=== PATIENT | male | born 1980 | race Caucasian/White ===

== ENCOUNTER → 2019-03-20 | Outpatient (CLI) | payer BC ==
[2019-03-20 11:06] LABS: Basophils # (A) 0.1 k/uL (0-0.2); Basophils % (A) 1 %; Eosinophils # (A) 0.4 k/uL (0-0.7); Eosinophils % (A) 6 %; HCT 45.8 % (39.0-53.0); HGB 15.5 gm/dL (13.0-17.5); Lymphocytes # (A) 2.7 k/uL (1.0-4.8); Lymphocytes % (A) 41 %; MCH 30.7 pg (25.0-35.0); MCHC 33.8 g/dL (31.0-37.0); MCV 90.8 fL (80.0-100.0); Monocytes # (A) 0.4 k/uL (0-1.0); Monocytes % (A) 6 %; Neutrophils # (A) 2.9 k/uL (1.3-7.7); Neutrophils % (A) 44 %; Platelet Count 324 k/uL (150-450); RBC 5.05 m/uL (4.30-5.90); RDW 12.2 % (11.5-15.5); WBC 6.7 k/uL (3.8-10.6)
[2019-03-20 16:33] LABS: Valproic Acid (Depakene) 39.7 ug/mL (50.0-100.0)
[2019-03-20 16:37] LABS: African American GFR (CKD) 132.3 (60.0-200.0); Albumin 4.7 g/dL (3.80-4.90); Albumin/Globulin Ratio 2.04 (1.60-3.17); Anion Gap 9.4 mmol/L (4.00-12.00); BUN/Creat Ratio 13.75 Ratio (12.00-20.00); Calcium 9.8 mg/dL (8.7-10.3); Carbon Dioxide 25.6 mmol/L (21.6-31.8); Chol/HDL Ratio 3.83; Globulin 2.3 g/dL (1.6-3.3); Non-African American GFR(CKD) 114.1 (60.0-200.0); Potassium 4.5 mmol/L (3.5-5.5); Total Bilirubin 0.4 mg/dL (0.2-1.2)
== END | disposition home or self-care (01) ==
LOC: LABWHC1 10:04
PROVIDERS: ATTEND Internal Medicine
DX: Z00.01 Encounter for general adult medical examination with abnormal findings (principal); R56.9 Unspecified convulsions
CPT/HCPCS: 36415; 80053; 80061; 80164; 80177; 85025

== ENCOUNTER 2023-08-01 10:40 | Emergency (ER) | payer BC ==
[2023-08-01] MEDS: ORPHENADRINE 30 MG/ML 2 ML VIAL IM STA (12:17)
--- NOTE | 2023-08-01 12:38 | ED ---
Back Pain HPI - General Chief Complaint: Back Pain/Injury Stated Complaint: back pain Time Seen by Provider: 08/01/23 12:37 Source: patient, family, RN notes reviewed Mode of arrival: ambulatory Limitations: no limitations - History of Present Illness Initial Comments: 43-year-old male presenting to the ER with a chief complaint of back pain. He states his pain has been exacerbated on . No known injuries or traumas. He does have a history of back pain and is scheduled to see Dr. Harris on 08-05-2023. He states for the past couple of days he has been having extreme pain and difficulty walking as he feels like his left leg is going to "give out". He also reports a tingling sensation down the left thigh. He denies any saddle paresthesias, bowel or bladder incontinence, fevers or history of IV drug use. - Related Data Home Medications Medication Instructions Recorded Confirmed Atorvastatin [Lipitor] 20 mg PO HS 08/01/23 08/01/23 Divalproex ER [Depakote ER] 500 mg PO HS 08/01/23 08/01/23 Naproxen Sodium [Aleve] 220 mg PO DAILY PRN 08/01/23 08/01/23 levETIRAcetam [Keppra Xr] 1,000 mg PO HS 08/01/23 08/01/23 rOPINIRole HCL [Requip] 1 mg PO HS 08/01/23 08/01/23 Previous Rx's Medication Instructions Recorded HYDROcodone/APAP 5-325MG [[place] 5] 1 each PO Q6HR PRN #12 tab 08/01/23 predniSONE 50 mg PO DAILY #5 tab 08/01/23 Allergies Allergy/AdvReac Type Severity Reaction Status Date / Time Penicillins Allergy Rash/Hives Verified 08/01/23 12:27 Review of Systems ROS Statement: Those systems with pertinent positive or pertinent negative responses have been documented in the HPI. ROS Other: All systems not noted in ROS Statement are negative. Past Medical History Past Medical History: Seizure Disorder History of Any Multi-Drug Resistant Organisms: None Reported Past Surgical History: Adenoidectomy Past Psychological History: No Psychological Hx Reported Smoking Status: Never smoker Past Alcohol Use History: Occasional Past Drug Use History: None Reported General Exam Limitations: no limitations Respiratory exam: Present: normal lung sounds bilaterally. Absent: respiratory distress, wheezes, rales, rhonchi, stridor Cardiovascular Exam: Present: regular rate, normal rhythm, normal heart sounds. Absent: systolic murmur, diastolic murmur, rubs, gallop, clicks Back exam: Present: tenderness (left pevllic gurdle. weakness to hip flexion on left. 2+ PT and DP pulses. sensation intact ) Neurological exam: Present: alert, oriented X3, CN II-XII intact Skin exam: Present: warm, dry, intact, normal color. Absent: rash Course Vital Signs 08/01/23 08/01/23 10:41 13:48 Temperature 98.1 F 97.9 F Pulse Rate 56 L 80 Respiratory 20 18 Rate Blood Pressure 137/82 136/70 O2 Sat by Pulse 98 99 Oximetry Medical Decision Making - Medical Decision Making Was pt. sent in by a medical professional or institution (, PA, SHEET METAL INSTALLER, urgent care, hospital, or retirement...) When possible be specific @ -No Did you speak to anyone other than the patient for history (EMS, parent, family, police, friend...)? What history was obtained from this source @ - aiding with PMHx and HPI. Did you review nursing and triage notes (agree or disagree)? Why? @ -I reviewed and agree with nursing and triage notes Were old charts reviewed (outside hosp., previous admission, EMS record, old EKG, old radiological studies, urgent care reports/EKG's, retirement records)? Report findings @ -No old charts were reviewed Differential Diagnosis (chest pain, altered mental status, abdominal pain women, abdominal pain men, vaginal bleeding, weakness, fever, dyspnea, syncope, headache, dizziness, GI bleed, back pain, seizure, CVA, palpatations, mental health, musculoskeletal)? @ -Differential Back Pain:Strain, zoster, cauda equina syndrome, epidural abscess, vertebral osteomyelitis, discitis, fracture, subluxation, disc herniation, DJD, spinal stenosis, dissection, AAA, pancreatitis, peptic ulcer disease, pyelonephritis, kidney stone, this is not meant to be an all-inclusive list. EKG interpreted by me (3pts min.). @ -None X-rays interpreted by me (1pt min.). @ -None done CT interpreted by me (1pt min.). @ -CT lumbar spine significant for L4-L5 central disc protrusion with moderate to severe spinal canal stenosis. No evidence of fractures. U/S interpreted by me (1pt. min.). @ -None done What testing was considered but not performed or refused? (CT, X-rays, U/S, labs)? Why? @ -None What meds were considered but not given or refused? Why? @ -None Did you discuss the management of the patient with other professionals (professionals i.e. , PA, SHEET METAL INSTALLER, lab, RT, psych nurse, sr. social media & mobile manager, department editor, teacher, foreign policy officer, bilingual case manager)? Give summary @ -No Was smoking cessation discussed for >3mins.? @ -No Was critical care preformed (if so, how long)? @ -No Were there social determinants of health that impacted care today? How? (Homelessness, low income, unemployed, alcoholism, drug addiction, transportation, low edu. Level, literacy, decrease access to med. care, longterm, rehab)? @ -No Was there de-escalation of care discussed even if they declined (Discuss DNR or withdrawal of care, Hospice)? DNR status @ -No What co-morbidities impacted this encounter? (DM, HTN, Smoking, COPD, CAD, Cancer, CVA, ARF, Chemo, Hep., AIDS, mental health diagnosis, sleep apnea, morbid obesity)? @ -None Was patient admitted / discharged? Hospital course, mention meds given and route, prescriptions, significant lab abnormalities, going to OR and other pertinent info. @ -Discharge. 43-year-old male presented to the ER with chief complaint of back pain. History and physical exam completed. Vitals stable. Patient no signs of acute distress and nontoxic-appearing. No red flag back pain symptoms indicative of cauda equina syndrome. CT lumbar spine significant for moderate to severe spinal canal stenosis with disc protrusion of L4-L5. Results discussed with patient, all questions answered. Prednisone and [place] prescribed. I strongly encouraged patient to attend orthopedic appointment on 08-05-[address] Castellanos. Strict return parameters discussed. Patient discharged stable condition with follow-up to orthopedics. Patient and verbally expressed understanding and agreement with care plan. Case discussed with ED attending, Dr. Garcia. Undiagnosed new problem with uncertain prognosis? @ -No Drug Therapy requiring intensive monitoring for toxicity (Heparin, Nitro, Insulin, Cardizem)? @ -No Were any procedures done? @ -No Diagnosis/symptom? @ -Spinal canal stenosis/L4-L5 central disc protrusion Acute, or Chronic, or Acute on Chronic? @ -Chronic Uncomplicated (without systemic symptoms) or Complicated (systemic symptoms)? @ -Uncomplicated Side effects of treatment? @ -No Exacerbation, Progression, or Severe Exacerbation? @ -No Poses a threat to life or bodily function? How? (Chest pain, [place], [place], pneumonia, PE, COPD, DKA, ARF, appy, cholecystitis, CVA, Diverticulitis, Homicidal, Suicidal, threat to staff... and all critical care pts) @ -No - Radiology Data Radiology results: report reviewed, image reviewed Disposition Clinical Impression: Lumbar canal stenosis, L4-L5 disc bulge Disposition: HOME SELF-CARE Condition: Stable Instructions (If sedation given, give patient instructions): Lumbar Spinal Stenosis (ED) Additional Instructions: Continue taking [id number] Tylenol and Motrin for pain control. Only take [place] for extreme pain. I encourage you to attend appointment with Dr. Harris on 08-05-2023. Return to the ER for any new or worsening concerns. Prescriptions: HYDROcodone/APAP 5-325MG [[place] 5] 1 each PO Q6HR PRN #12 tab PRN Reason: Pain predniSONE 50 mg PO DAILY #5 tab Is patient prescribed a controlled substance at d/c from ED?: No Referrals: Felecia Dorsey MD [Primary Care Provider] - 1-2 days Vinny Castellanos DO [Doctor of Osteopathic Medicine] - 1-2 days Time of Disposition: 13:29
--- NOTE | 2023-08-01 13:12 | CT ---
EXAMINATION TYPE: CT lumbar spine wo con CT DLP: 1015 mGycm, Automated exposure control for dose reduction was used. DATE OF EXAM: 08/01/2023 12:47 PM COMPARISON: . CLINICAL INDICATION:Male, 43 years old with history of back pain; PHH, back pain TECHNIQUE: Multiple axial images were obtained from the midportion of T11 through the sacroiliac joe nts. Soft tissue and bone windows in coronal and sagittal planes were obtained and reviewed. 3-D ref ormats of the bones were created on a separate workstation and submitted for review. Contrast used: mL of , (None, if empty). Oral contrast used: (None, if empty). FINDINGS: Alignment: There are 5 lumbar type vertebral bodies within normal alignment. Bone: Mild degeneration changes throughout the spine. Mild facet joint arthropathy. Discs: T12-L1: No spinal canal or neural foraminal stenosis is identified. L1-L2: No spinal canal or neural foraminal stenosis is identified. L2-L3: No spinal canal or neural foraminal stenosis is identified. L3-L4: No spinal canal or neural foraminal stenosis is identified. L4-L5: Central disc protrusion with moderate to severe spinal canal stenosis. Disc material likely di splaces multiple cauda equina roots. The neural foramen are patent. L5-S1: No spinal canal or neural foraminal stenosis is identified. Other: None IMPRESSION: L4-L5 central disc protrusion with moderate to severe spinal canal stenosis. No evidence of fracture. Further evaluation with MRI spine recommended.
[2023-08-01 14:30] VITALS: BP 136/70; PULSE 80; RESP 18; TEMP 97.9
== END 2023-08-01 13:50 | disposition home or self-care (01) ==
LOC: EC 10:40
DX: M48.061 Spinal stenosis, lumbar region without neurogenic claudication (principal); M51.36 Other intervertebral disc degeneration, lumbar region; Z88.0 Allergy status to penicillin
CPT/HCPCS: 72131; 99283; 96372; J2360

== ENCOUNTER 2023-08-29 17:45 | Emergency (ER) | payer BC ==
[2023-08-29 18:08] VITALS: TEMP 97.8
--- NOTE | 2023-08-29 18:36 | ED ---
General Adult HPI - General Source: patient, RN notes reviewed Mode of arrival: ambulatory Limitations: no limitations <Geena Pimentel - Last Filed: 08/29/23 18:34> - General Source: patient, RN notes reviewed, old records reviewed <Sukumar Garcia - Last Filed: 08/30/23 00:44> - General Chief complaint: Recheck/Abnormal Lab/Rx Stated complaint: L Numbness Leg Time Seen by Provider: 08/29/23 18:02 - History of Present Illness Initial comments: Quick Note-this is a 43-year-old male presents to the emergency department complaint of lumbar back pain and left thigh numbness that started 2 days. Patient has a known history of a L4-L5 herniated disc. He follows with Dr. Castellanos where a MRI was completed on 08/24, results have not yet been interpreted to the patient. States that left leg and her numbness and tingling began this afternoon and is exacerbated with ambulation. (Geena Pimentel) Patient is a 43-year-old male who presents to the emergency department complaining of numbness to a specific point on the inner part of his left thigh midway down. Has known disc bulging in the L4-L5 region. Has had sciatica type pain and is due to see physical therapy. Today the left leg findings began. They called patient's orthopedic back specialist, Dr. Castellanos who is not available and therefore patient was brought here for evaluation. Family initially told triage that his surgeon sent him in, however they were unable to contact him which is why they came in. He denies any saddle or anesthesias. Denies any urinary or bowel incontinence or retention. Denies any weakness in the lower extremities or paralysis. Presents for further evaluation at this time. (Sukumar Garcia) - Related Data Home Medications Medication Instructions Recorded Confirmed Atorvastatin [Lipitor] 20 mg PO HS 08/01/23 08/01/23 Divalproex ER [Depakote ER] 500 mg PO HS 08/01/23 08/01/23 Naproxen Sodium [Aleve] 220 mg PO DAILY PRN 08/01/23 08/01/23 levETIRAcetam [Keppra Xr] 1,000 mg PO HS 08/01/23 08/01/23 rOPINIRole HCL [Requip] 1 mg PO HS 08/01/23 08/01/23 Previous Rx's Medication Instructions Recorded HYDROcodone/APAP 5-325MG [[place] 1 tab PO Q6HR PRN 3 Days #12 tab 08/01/23 5-325] HYDROcodone/APAP 5-325MG [[place] 5] 1 each PO Q6HR PRN #12 tab 08/01/23 predniSONE 50 mg PO DAILY #5 tab 08/01/23 Allergies Allergy/AdvReac Type Severity Reaction Status Date / Time Penicillins Allergy Rash/Hives Verified 08/29/23 18:08 Review of Systems ROS Other: All systems not noted in ROS Statement are negative. <Geena Pimentel - Last Filed: 08/29/23 18:34> ROS Other: All systems not noted in ROS Statement are negative. <Sukumar Garcia - Last Filed: 08/30/23 00:44> ROS Statement: Those systems with pertinent positive or pertinent negative responses have been documented in the HPI. Review of Systems: CONST: Denies fever EYES: Denies blurry vision ENT: Denies nasal congestion C/V: Denies Chest pain RESP: Denies shortness of breath GI: Denies abdominal pain : Denies dysuria SKIN: Denies rash. MSK: Denies joint pain. NEURO: Denies headache (Sukumar Garcia) Past Medical History Past Medical History: Seizure Disorder History of Any Multi-Drug Resistant Organisms: None Reported Past Surgical History: Adenoidectomy Past Psychological History: No Psychological Hx Reported Smoking Status: Never smoker Past Alcohol Use History: Occasional Past Drug Use History: None Reported <Geena Pimentel - Last Filed: 08/29/23 18:34> General Exam Limitations: no limitations <Geena Pimentel - Last Filed: 08/29/23 18:34> <Sukumar Garcia - Last Filed: 08/30/23 00:44> - General Exam Comments Initial Comments: Visual Physical Exam Vital signs reviewed General: Well-appearing, nontoxic, no acute distress. Head: Normocephalic, atraumatic Eyes: PERRLA, EOMI ENT: Airway patent Chest: Nonlabored breathing Skin: No visual rash, normal skin tone Neuro: Alert and oriented 3 Musculoskeletal: No gross abnormalities (Geena Pimentel) General: Appears in no acute distress. HEAD: Normal with no signs of head trauma. EYES: PERRLA, EOMI, conjunctiva normal, no discharge. ENT: Hearing grossly intact, normal oropharynx. RESPIRATORY: Clear breath sounds bilaterally. No wheezes, rales, or rhonchi. C/V: Regular rate and rhythm. S1 and S2 auscultated, no edema, peripheral pulses 2+ and intact throughout ABD: Abd is soft, nontender, nondistended EXT: Normal range of motion, no obvious deformity SKIN: No rashes or lesions observed on exposed skin. NEURO: Alert and oriented x 4. Cranial nerves II-XII intact. No focal sensory or strength deficits. 5 out of 5 strength in the bilateral knees, ankles, hips. Able to ambulate without difficulty. (Sukumar Garcia) Course Vital Signs 08/29/23 08/29/23 18:05 20:56 Temperature 97.8 F Pulse Rate 83 63 Respiratory 18 17 Rate Blood Pressure 132/84 129/86 O2 Sat by Pulse 98 97 Oximetry Medical Decision Making <Geena Pimentel - Last Filed: 08/29/23 18:34> <Sukumar Garcia - Last Filed: 08/30/23 00:44> - Medical Decision Making I completed the quick note portion of this chart signed Geena Pimentel PA-C (Geena Pimentel) Was pt. sent in by a medical professional or institution (BRANDEN Flores, DATA WAREHOUSE SPECIALIST, urgent care, hospital, or long-term...) When possible be specific @ -No Did you speak to anyone other than the patient for history (EMS, parent, family, police, friend...)? What history was obtained from this source @ -No Did you review nursing and triage notes (agree or disagree)? Why? @ -I reviewed and agree with nursing and triage notes Were old charts reviewed (outside hosp., previous admission, EMS record, old EKG, old radiological studies, urgent care reports/EKG's, long-term records)? Report findings @ -No old charts were reviewed Differential Diagnosis (chest pain, altered mental status, abdominal pain women, abdominal pain men, vaginal bleeding, weakness, fever, dyspnea, syncope, headache, dizziness, GI bleed, back pain, seizure, CVA, palpatations, mental health, musculoskeletal)? @ -Cauda equina syndrome, sciatica, lower back pain. This list is not all inclusive. EKG interpreted by me (3pts min.). @ -None done X-rays interpreted by me (1pt min.). @ -None done CT interpreted by me (1pt min.). @ -None done U/S interpreted by me (1pt. min.). @ -None done What testing was considered but not performed or refused? (CT, X-rays, U/S, labs)? Why? @ -Considered MRI of the lumbar spine however patient has no signs or symptoms of cauda equina I do not believe it is needed at this time. What meds were considered but not given or refused? Why? @ -None Did you discuss the management of the patient with other professionals (professionals i.e. Dr., PA, DATA WAREHOUSE SPECIALIST, lab, RT, psych nurse, social science manager, cloud infrastructure architect, teacher, articulation officer, adult protective caseworker)? Give summary @ -Discussed with patient senior quality assurance specialist Dr. Castellanos who apparently sent the patient in per family however he is unaware of this. We did discuss symptoms and was in agreement it does not sound like cauda equina syndrome. Was in agreement plan for discharge and follow-up outpatient. Was smoking cessation discussed for >3mins.? @ -No Was critical care preformed (if so, how long)? @ -No Were there social determinants of health that impacted care today? How? (Homelessness, low income, unemployed, alcoholism, drug addiction, transportation, low edu. Level, literacy, decrease access to med. care, usp, rehab)? @ -No Was there de-escalation of care discussed even if they declined (Discuss DNR or withdrawal of care, Hospice)? DNR status @ -No What co-morbidities impacted this encounter? (DM, HTN, Smoking, COPD, CAD, Cancer, CVA, ARF, Chemo, Hep., AIDS, mental health diagnosis, sleep apnea, morbid obesity)? @ -None Was patient admitted / discharged? Hospital course, mention meds given and route, prescriptions, significant lab abnormalities, going to OR and other perti nent info. @ -Based on patient's presentation and physical exam, presents with point numbness over the mid left thigh. Does not extend into the groin. No other concern for cauda equina syndrome at this time. Patient and family were concerned regarding this. We discussed at length and they understand that this is not cauda equina syndrome or symptoms. We did discuss the findings to be concerned for and they expressed understanding. I believe it is safer to be discharged home at this time. I did speak with his senior quality assurance specialist Dr. Castellanos who was in agreement with this plan. Was in agreement that this does not seem to be cauda equina syndrome. Vital signs within acceptable limits. Patient given a dose of Decadron prior to discharge. I instructed the patient to follow up with their PCP in the next 1-3 days . I explained that the patient should return to the emergency department if they experience any worsening symptoms. Strict return precautions were discussed with the patient. The patient expressed understanding of these instructions. I answered all questions that the patient had. The patient was discharged home in good condition with their prescriptions and follow up information. Undiagnosed new problem with uncertain prognosis? @ -No Drug Therapy requiring intensive monitoring for toxicity (Heparin, Nitro, Insulin, Cardizem)? @ -No Were any procedures done? @ -No Diagnosis/symptom? @ -Lumbar spine radiculopathy Acute, or Chronic, or Acute on Chronic? @ -Acute on chronic Uncomplicated (without systemic symptoms) or Complicated (systemic symptoms)? @ -Uncomplicated Side effects of treatment? @ -No Exacerbation, Progression, or Severe Exacerbation? @ -No Poses a threat to life or bodily function? How? (Chest pain, [place], [place], pneumonia, PE, COPD, DKA, ARF, appy, cholecystitis, CVA, Diverticulitis, Homicidal, Suicidal, threat to staff... and all critical care pts) @ -Unlikely (Sukumar Garcia) Disposition <Geena Pimentel - Last Filed: 08/29/23 18:34> Is patient prescribed a controlled substance at d/c from ED?: No Time of Disposition: 20:35 <Sukumar Garcia - Last Filed: 08/30/23 00:44> Clinical Impression: Lumbar radiculopathy, acute Disposition: HOME SELF-CARE Condition: Good Referrals: Felecia Dorsey MD [Primary Care Provider] - 1-2 days Vinny Castellanos DO [Doctor of Osteopathic Medicine] - 1-2 days
[2023-08-29] MEDS: dexAMETHasone 4 MG TAB PO STA (20:52)
[2023-08-29 20:58] VITALS: BP 129/86; PULSE 63; RESP 17
== END 2023-08-29 20:57 | disposition home or self-care (01) ==
LOC: EC 17:45
DX: M54.16 Radiculopathy, lumbar region (principal); Z88.0 Allergy status to penicillin
CPT/HCPCS: 99283; J8540

== ENCOUNTER → 2023-09-02 | Outpatient (CLI) | payer BC ==
--- NOTE | 2023-09-02 10:11 | XR ---
EXAMINATION TYPE: XR chest 2V DATE OF EXAM: 09/02/2023 9:48 AM CLINICAL INDICATION:Male, 43 years old with history of M54.59 OTHER LOW BACK PAIN M51.16 [facility] D; [facility] COMPARISON: None TECHNIQUE: XR chest 2V Frontal and lateral views of the chest. FINDINGS: Lungs/Pleura: There is no evidence of pleural effusion, focal consolidation, or pneumothorax. Pulmonary vascularity: Unremarkable. Heart/mediastinum: Cardiomediastinal silhouette is unremarkable. Musculoskeletal: No acute osseous pathology. IMPRESSION: No acute cardiopulmonary disease/process.
[2023-09-02 11:18] LABS: Partial Thromboplastin Time 24.7 sec (22.0-30.0); Prothrombin Time 10.9 sec (10.0-12.5)
[2023-09-02 16:50] LABS: HCT 49.5 % (39.6-50.0); HGB 15.9 g/dL (13.0-17.0); MCH 30.2 pg (27.0-32.0); MCHC 32.1 g/dL (32.0-37.0); MCV 93.9 FL (80.0-97.0); Mean Platelet Volume 9.6 FL (9.5-12.2); NRBC Per 100 WBC 0 X 10*3/uL (0.00-0.01); Platelet Count 290 X 10*3/uL (140-440); RBC 5.27 X 10*6/uL (4.40-5.60); RDW 12.2 % (11.5-14.5); WBC 8.52 X 10*3/uL (4.50-10.00)
[2023-09-02 17:05] LABS: Appearance,Urine Clear (Clear); Bilirubin,Urine Negative (Negative); Blood,Urine Negative (Negative); Color,Urine Yellow (Yellow); Ketones,Urine Negative (Negative); Nitrite,Urine Negative (Negative); Specific Gravity,Urine 1.016 (1.001-1.030); Urobilinogen,Urine 0.2 E.U./DL
[2023-09-02 17:20] LABS: ALT 31 U/L (10-49); AST 19 U/L (14-35); Albumin 4.4 g/dL (3.8-4.9); Albumin/Globulin Ratio 1.69 Ratio (1.60-3.17); Alkaline Phosphatase 54 U/L (41-126); BUN/Creat Ratio 17.33 Ratio (12.00-20.00); Blood Urea Nitrogen 15.6 mg/dL (9.0-27.0); Calcium 9.9 mg/dL (8.7-10.3); Carbon Dioxide 26.8 mmol/L (21.6-31.8); Chloride 102 mmol/L (96-109); Globulin 2.6 g/dL (1.6-3.3); Glucose 91 mg/dL (70-110); Potassium 4.2 mmol/L (3.5-5.5); Sodium 142 mmol/L (135-145); Total Bilirubin 0.5 mg/dL (0.3-1.2)
== END | disposition home or self-care (01) ==
LOC: LABWHC1 09:20
PROVIDERS: ATTEND Orthopaedic Surgery Orthopaedic Surgery of the Spine
DX: M51.16 Intervertebral disc disorders with radiculopathy, lumbar region (principal); M62.830 Muscle spasm of back; M51.26 Other intervertebral disc displacement, lumbar region; M48.062 Spinal stenosis, lumbar region with neurogenic claudication; M51.36 Other intervertebral disc degeneration, lumbar region; S39.012D Strain of muscle, fascia and tendon of lower back, subsequent encounter; R53.1 Weakness
CPT/HCPCS: 36415; 71046; 80053; 81003; 85027; 85610; 85730

== ENCOUNTER 2023-09-09 11:38 | Inpatient (IN) | payer BC ==
--- NOTE | 2023-09-09 11:54 | ED ---
Extremity Problem HPI - General Chief complaint: Extremity Injury, Lower Stated complaint: R Leg Blood Clot Time Seen by Provider: 09/09/23 11:50 Source: patient, RN notes reviewed Mode of arrival: wheelchair Limitations: no limitations - History of Present Illness Initial comments: This is a 43-year-old male who presents to the emergency department for a DVT in the right lower extremity. Patient states that he had a laminectomy yesterday and in the preop area they noticed that his right leg was red and swollen. Patient states that he has been having ongoing pain in his leg, but attributed it to his back problems. Had an outpatient ultrasound today, which was positive for a DVT, and he was advised to come to the emergency department for evalua tion. Denies any history of blood clots. Not taking any blood thinners. Denies any chest pain or shortness of breath. He does note feeling very fatigued, which he attributed to the back problems. - Related Data Home Medications Medication Instructions Recorded Confirmed Atorvastatin [Lipitor] 20 mg PO HS 08/01/23 09/09/23 Divalproex ER [Depakote ER] 500 mg PO HS 08/01/23 09/09/23 levETIRAcetam [Keppra Xr] 1,000 mg PO HS 08/01/23 09/09/23 rOPINIRole HCL [Requip] 1 mg PO HS 08/01/23 09/09/23 Cyclobenzaprine [Flexeril] 10 mg PO BID PRN 09/09/23 09/09/23 HYDROcodone/APAP 5-325MG [[place] 1 tab PO TID PRN 09/09/23 09/09/23 5-325] Ibuprofen [Motrin] 800 mg PO Q8H PRN 09/09/23 09/09/23 Allergies Allergy/AdvReac Type Severity Reaction Status Date / Time Penicillins Allergy Rash/Hives Verified 09/09/23 15:17 Review of Systems ROS Statement: Those systems with pertinent positive or pertinent negative responses have been documented in the HPI. ROS Other: All systems not noted in ROS Statement are negative. Past Medical History Past Medical History: Seizure Disorder History of Any Multi-Drug Resistant Organisms: None Reported Past Surgical History: Adenoidectomy Additional Past Surgical History / Comment(s): Laminectomy (09/08/23) Past Psychological History: No Psychological Hx Reported Smoking Status: Never smoker Past Alcohol Use History: Occasional Past Drug Use History: None Reported General Exam Limitations: no limitations General appearance: alert, in no apparent distress Head exam: Present: atraumatic, normocephalic, normal inspection Respiratory exam: Present: normal lung sounds bilaterally. Absent: respiratory distress, wheezes, rales, rhonchi, stridor Cardiovascular Exam: Present: regular rate, normal rhythm, normal heart sounds. Absent: systolic murmur, diastolic murmur, rubs, gallop, clicks Extremities exam: Present: other (Erythema and swelling to the right lower extremity) Neurological exam: Present: alert, oriented X3, CN II-XII intact Psychiatric exam: Present: normal affect, normal mood Course Vital Signs 09/09/23 09/09/23 11:42 15:12 Temperature 97.9 F Pulse Rate 96 100 Respiratory 16 18 Rate Blood Pressure 133/80 139/89 O2 Sat by Pulse 97 96 Oximetry Medical Decision Making - Medical Decision Making This is a 43 year old male who presents to the emergency department for right leg pain. Was pt. sent in by a medical professional or institution? @ -No Did you speak to anyone other than the patient for history? @ -No Did you review nursing and triage notes? @ -Yes, and I agree, it is accurate with regards to the patient's symptoms. Were old charts reviewed? @ -Duplex US of the right lower extremity from today demonstrating a DVT from the proximal femoral vein down to the calf. Differential Diagnosis? @ -Differential Leg Pain: Leg fracture, leg sprain, DVT, PVD, arterial insufficiency, iliac artery aneurysm, cellulitis, compartment syndrome, tendinopathy, nerve entrapment, piriformis syndrome, osteoarthritis, rhabdomyolysis, myositis, cramping from an electrolyte imbalance, this is not meant to be an all inclusive list. EKG interpreted by me (3pts min.)? @ -EKG interpreted by me demonstrating the following: Sinus tachycardia. Ventricular rate 105 bpm, PA interval 188 ms, QRS duration 90 ms, QTc 391 ms. X-rays interpreted by me (1pt min.)? @ -Not obtained CT interpreted by me (1pt min.)? @ -CTA of the chest obtained. My interpretation identifies bilateral PEs U/S interpreted by me (1pt. min.)? @ -Not obtained What testing was considered but not performed? (CT, X-rays, U/S, labs)? Why? @ -None What meds were considered but not given? Why? @ -None Did you discuss the management of the patient with other professionals? @ -Yes, Dr. Thurman, who accepts the patient for admission Did you reconcile home meds? @ -Yes Was smoking cessation discussed for >3mins.? @ -No Was critical care preformed (if so, how long)? @ -No Were there social determinants of health that impacted care today? How? (Homelessness, low income, unemployed, alcoholism, drug addiction, transportation, low edu. Level, literacy, decrease access to med. care, fpc, rehab)? @ -No Was there de-escalation of care discussed even if they declined? (Discuss DNR or withdrawal of care, Hospice)? @ -No What co-morbidities impacted this encounter? (DM, HTN, Smoking, COPD, CAD, Cancer, CVA, Hep., AIDS, mental health diagnosis, sleep apnea, morbid obesity)? @ -None Was patient admitted / discharged? @ -Admitted. Duplex ultrasound of the right lower extremity obtained earlier today on an outpatient basis reviewed demonstrating echoes from the proximal femoral vein all the way down to the calf. There is no compression and limited blood flow. Patient states that he has had leg pain for weeks, but attributed this to the back problems. However, it only recently started to get red. He denies any shortness of breath or chest pain, but does admit to some increasing fatigue. CTA of the chest was subsequently obtained. This was positive for bilateral pulmonary emboli in the distal right and left main arteries extending into essentially all lobes but mostly at the right more than left. There is no evidence of right heart strain. Patient started on high intensity heparin protocol and admitted to medicine for bilateral PEs and right lower extremity DVT. Consult placed for pulmonology and vascular surgery. Echocardiogram ordered as well to be done during admission. Undiagnosed new problem with uncertain prognosis? @ -None Drug Therapy requiring intensive monitoring for toxicity (Heparin, Nitro, I nsulin, Cardizem)? @ -Heparin Were any procedures done? @ -None Diagnosis/symptom? @ -Bilateral PEs, right leg DVT Acute, or Chronic, or Acute on Chronic? @ -Acute Uncomplicated (without systemic symptoms) or Complicated (systemic symptoms)? @ -Uncomplicated Side effects of treatment? @ -None Exacerbation, Progression, or Severe Exacerbation] @ -Not applicable Poses a threat to life or bodily function? @ -Yes This case was discussed in detail with the attending ED physician, Dr. Mendiola. Presentation, findings, and treatment plan discussed in detail as well. - Lab Data Result diagrams: 09/09/23 14:16 09/09/23 14:16 - Radiology Data Radiology results: report reviewed, image reviewed Disposition Clinical Impression: Right leg DVT, Bilateral pulmonary embolism Disposition: ADMITTED IP TO THIS HOSP
[2023-09-09] MEDS ORDERED: HEPARIN SODIUM 1,000 UN/ML (10ML VL) IV PRN (13:42)
[2023-09-09] MEDS ORDERED: IBUPROFEN 400 MG TAB PO PRN (14:21)
[2023-09-09] MEDS ORDERED: HYDROcodone/APAP 5-325MG 1 EACH TAB PO PRN ×2 (14:21→15:38)
[2023-09-09] MEDS ORDERED: NALOXONE 0.4 MG/ML 1 ML VIAL IV PRN (14:21)
[2023-09-09] MEDS ORDERED: KETOROLAC 15 MG/ML 1 ML VIAL IVP PRN (14:21)
[2023-09-09] MEDS ORDERED: MORPHINE SULFATE 4 MG/ML SYRINGE IV PRN (14:21)
[2023-09-09] MEDS ORDERED: ONDANSETRON 4 MG/2 ML VIAL IVP PRN (14:21)
[2023-09-09] MEDS ORDERED: ACETAMINOPHEN TAB 325 MG TAB PO PRN (14:21)
[2023-09-09 14:48] LABS: Basophils % (A) 0 %; Eosinophils # (A) 0.1 k/uL (0-0.7); Eosinophils % (A) 0 %; HCT 45.6 % (39.0-53.0); HGB 15.2 gm/dL (13.0-17.5); Lymphocytes # (A) 2.4 k/uL (1.0-4.8); Lymphocytes % (A) 12 %; MCH 30.5 pg (25.0-35.0); MCHC 33.3 g/dL (31.0-37.0); MCV 91.8 fL (80.0-100.0); Mean Platelet Volume 7.5; Monocytes # (A) 1.5 k/uL (0-1.0); Monocytes % (A) 7 %; Neutrophils # (A) 16.2 k/uL (1.3-7.7); Neutrophils % (A) 79 %; Platelet Count 319 k/uL (150-450); RBC 4.97 m/uL (4.30-5.90); RDW 12.3 % (11.5-15.5); WBC 20.5 k/uL (3.8-10.6)
[2023-09-09] MEDS: HEPARIN SOD,PORK IN 0.45% NACL 25,000 UNIT in 0.45% NACL 1 250ML.BAG IV SCH (15:01)
[2023-09-09 15:03] LABS: INR 0.9 (<1.2); Prothrombin Time 10.1 sec (10.0-12.5)
[2023-09-09] MEDS: HEPARIN SODIUM 1,000 UN/ML (10ML VL) IV ONE (15:04)
[2023-09-09 15:09] LABS: ALT 54 U/L (4-49); AST 49 U/L (17-59); African American GFR (CKD) >90 (>60 ml/min/1.73 sqM); Albumin 4.6 g/dL (3.5-5.0); Alkaline Phosphatase 67 U/L (38-126); Anion Gap 8 mmol/L; Blood Urea Nitrogen 17 mg/dL (9-20); Calcium 9.3 mg/dL (8.4-10.2); Carbon Dioxide 25 mmol/L (22-30); Chloride 106 mmol/L (98-107); Glucose 101 mg/dL (74-99); Non-African American GFR(CKD) >90 (>60 ml/min/1.73 sqM); Potassium 4.7 mmol/L (3.5-5.1); Sodium 139 mmol/L (137-145); Total Bilirubin 0.6 mg/dL (0.2-1.3); Total Protein 7.5 g/dL (6.3-8.2)
[2023-09-09] MEDS ORDERED: IBUPROFEN 800 MG TAB PO PRN (15:38)
[2023-09-09] MEDS ORDERED: CYCLOBENZAPRINE 10 MG TAB PO PRN (15:38)
--- NOTE | 2023-09-09 15:45 | CT ---
EXAMINATION TYPE: CT chest angio for PE CT DLP: 427.1 mGycm, Automated exposure control for dose reduction was used. DATE OF EXAM: 09/09/2023 2:44 PM COMPARISON: 2 view chest x-ray 09/12/2023, earlier same day venous ultrasound positive for DVT CLINICAL INDICATION:Male, 43 years old with history of DVT right leg, fatigue and weakness; DVT right leg, fatigue and weakness. Laminectomy yesterday TECHNIQUE/CONTRAST: CTA scan of the thorax is performed with IV Contrast, patient injected with 70ml mL of Isovue 370, PR P images are created and reviewed these are created on a separate workstation.. FINDINGS: There is adequate contrast bolus and timing. PULMONARY ARTERIES: The pulmonary trunk enhances normally and is upper limits of normal in size at 2. 9 cm. There are low attenuation filling defects in the distal right and left main pulmonary arteries with extension into essentially all lobes but mostly the right more than left lower lobes, consistent with emboli. AORTA: Mild atherosclerotic calcifications of the aorta and branches. Ascending aorta is 2.7 CM, avi cending is 2.1 CM. Aorta shows no dissection flap. HEART: Heart appears mildly enlarged. The RV/LV ratio does not appear abnormally increased and there is no bowing of the interventricular septum. No reflux of contrast is seen.. LOWER NECK: No significant findings. MEDIASTINUM: No enlarged nodes by CT size criteria. SOFT TISSUES/AXILLA: Unremarkable soft tissues. No axillary adenopathy. LUNGS/ PLEURA: Mild dependent opacities in the lungs consistent with subsegmental atelectasis. No radha dence of pulmonary infarct. AIRWAY: Central airways are patent. MUSCULOSKELETAL: No acute osseous abnormality. Minimal degenerative changes. UPPER ABDOMEN: No significant findings. IMPRESSION: * Positive study demonstrating bilateral pulmonary emboli as described. * Mild cardiomegaly with no clear findings of cardiac strain/insufficiency.
[2023-09-09] MEDS: ATORVASTATIN 20 MG TAB PO SCH (20:34)
[2023-09-09] MEDS: levETIRAcetam 500 MG TAB PO SCH (20:35)
[2023-09-09] MEDS: DIVALPROEX ER 500 MG TAB.ER.24H PO SCH (20:35)
--- NOTE | 2023-09-09 23:45 | P.CNPUL ---
History of Present Illness Consult date: 09/09/23 Reason for consult: pulmonary embolism History of present illness: This is a 43-year-old male patient who was brought into the hospital due to co ncern of a right lower extremity swelling/DVT. The patient has undergone limited laminectomy on outpatient basis [facility]. Noted preoperatively, the patient was experiencing back pain and he was essentially sedentary and at the same time he was experiencing right lower extremity sw elling. He has discussed this on multiple occasions with surgery and his primary care physician and his swelling was attributed to ongoing laminectomy. Ultimately, the patient was brought into the emergency department and the patient underwent a right lower extremity ultrasound that showed a DVT of the right lower extremity and CT angiogram of the chest showed bilateral pulmonary embolism and mild cardiomegaly without any clear evidence of any strain pattern. The patient had filling defects in the right and left main pulmonary arteries with extension into the lower lobes more so on the right compared to the left. Troponins were negative. The patient is free of any chest pain. No respiratory distress. No cough sputum production chest tightness or wheezing. No pleurisy. White cell count is at 20 with a hemoglobin 15.2 and a platelet count of 319. Normal coagulation profile. Normal electrolytes. Normal renal function. No previous history of DVT or pulmonary embolism. No personal or family history of DVT or pulmonary embolism. As such, the patient was started on IV heparin. The patient otherwise has no specific complaints. His surgical wound site over the back area is dry clean and intact. His right lower extremity was getting progressively more swollen and red. He has Doppler of the lower extremity was done on outpatient basis confirming evidence of DVT. Review of Systems Constitutional: Denies chills, Denies fever Eyes: denies as per HPI, denies blurred vision, denies bulging eye, denies decre ased vision, denies diplopia, denies discharge, denies dry eye, denies irritation, denies itching, denies pain, denies photophobia, denies loss of peripheral vision, denies loss of vision, denies tunnel vision/blind spots Ears: deny: decreased hearing, ear discharge, earache, tinnitus Ears, nose, mouth and throat: Reports as per HPI Breasts: absent: as per HPI, gynecomastia Cardiovascular: Reports as per HPI Respiratory: Reports as per HPI Gastrointestinal: Reports as per HPI Genitourinary: Reports as per HPI Musculoskeletal: Reports low back pain Musculoskeletal: bilateral: ankle swelling, absent: ankle pain, ankle stiffness, as per HPI, elbow pain, elbow stiffness, elbow swelling, foot pain, foot stiffness, foot swelling, hand pain, hand stiffness, hand swelling, hip pain, hip stiffness, hip swelling, knee pain, knee stiffness, knee swelling, shoulder pain, shoulder stiffness, shoulder swelling, wrist pain, wrist stiffness, wrist swelling Integumentary: Reports as per HPI Neurological: Reports as per HPI Psychiatric: Reports as per HPI Endocrine: Reports as per HPI Hematologic/Lymphatic: Reports as per HPI Allergic/Immunologic: Reports as per HPI Past Medical History Past Medical History: Hyperlipidemia, Seizure Disorder History of Any Multi-Drug Resistant Organisms: None Reported Past Surgical History: Adenoidectomy Additional Past Surgical History / Comment(s): Laminectomy (09/08/23) Past Psychological History: No Psychological Hx Reported Smoking Status: Never smoker Past Alcohol Use History: Occasional Past Drug Use History: None Reported Medications and Allergies Home Medications Medication Instructions Recorded Confirmed Type Atorvastatin [Lipitor] 20 mg PO HS 08/01/23 09/09/23 History Divalproex ER [Depakote ER] 500 mg PO HS 08/01/23 09/09/23 History levETIRAcetam [Keppra Xr] 1,000 mg PO HS 08/01/23 09/09/23 History rOPINIRole HCL [Requip] 1 mg PO HS 08/01/23 09/09/23 History Cyclobenzaprine [Flexeril] 10 mg PO BID PRN 09/09/23 09/09/23 History HYDROcodone/APAP 5-325MG [[place] 1 tab PO TID PRN 09/09/23 09/09/23 History 5-325] Ibuprofen [Motrin] 800 mg PO Q8H PRN 09/09/23 09/09/23 History Allergies Allergy/AdvReac Type Severity Reaction Status Date / Time Penicillins Allergy Rash/Hives Verified 09/09/23 15:17 Physical Exam Vitals: Vital Signs Temp Pulse Resp BP Pulse Ox 09/09/23 15:12 100 18 139/89 96 09/09/23 11:42 97.9 F 96 16 133/80 97 Intake and Output 09/09/23 09/09/23 09/09/23 06:59 14:59 22:59 Other: Weight 90.718 kg General appearance, the patient is calm and comfortable, no acute distress. Currently on room air oxygen. No tachycardia. No hemodynamic instability. Head exam was generally normal. There was no scleral icterus or corneal arcus. Mucous membranes were moist. Neck was supple and without jugular venous distension, thyromegaly, or carotid bruits. Carotids were easily palpable bilaterally. There was no adenopathy. Lungs were clear to auscultation and percussion, and with normal diaphragmatic excursion. No wheezes or rales were noted. Cardiac exam revealed the PMI to be normally situated and sized. The rhythm was regular and no extrasystoles were noted during several minutes of auscultation. The first and second heart sounds were normal and physiologic splitting of the second heart sound was noted. There were no murmurs, rubs, clicks, or gallops. Abdominal exam revealed normal bowel sounds. The abdomen was soft, non-tender, and without masses, organomegaly, or appreciable enlargement of the abdominal aorta. Extremities reveal a swollen right lower extremity. There is also some erythema. Equal and symmetrical pulses bilaterally. Examination of the skin revealed no evidence of significant rashes, suspicious appearing nevi or other concerning lesions. Surgical wound site over the back area is dry clean and intact. Neurologically, the patient is awake and alert and the patient does not have any focal neurological deficit. Cranial nerves are essentially intact. Results - Laboratory Findings CBC and BMP: 09/09/23 14:16 09/09/23 14:16 PT/INR, D-dimer PT 10.1 sec (10.0-12.5) 09/09/23 14:16 INR 0.9 (<1.2) 09/09/23 14:16 Abnormal lab findings: Abnormal Labs 09/09/23 09/09/23 14:16 14:16 WBC 20.5 H Neutrophils # 16.2 H Monocytes # 1.5 H Glucose 101 H ALT 54 H - Diagnostic Findings Chest x-ray: image reviewed CT scan - chest: image reviewed Assessment and Plan Plan: Acute pulmonary embolism associated with a right lower extremity DVT. The patient's pulmonary emboli, bilateral involving the right and left mainstem bronchi extending to the lower lobe segments. Despite this, the patient is hemodynamically stable. No evidence of any RV strain and troponins are negative. No tachycardia. No hypotension. No shortness of breath. No pleurisy or hemoptysis. Right lower extremity DVT that occurred most likely prior to his back surgery. The patient was having swelling and pain in his right lower extremity prior to his back surgery. As such, this is probably an unprovoked event Lumbar spine surgery involving a laminectomy performed on 09/08/2023 Chronic back pain History of seizure disorder Hyperlipidemia Plan Obtain echocardiogram to assess RV strain and pulmonary hypertension Hemodynamically stable on room air oxygen No tachycardia Troponins are negative Keep the patient on IV heparin Resume home medications Will continue to follow. Will require anticoagulation with close monitoring of his surgical wounds. Not a candidate for intra-arterial thrombolytic therapy or clot extraction thrombectomy at this point in time. Will continue to follow.
--- NOTE | 2023-09-10 12:31 | P.HPIM ---
History of Present Illness 31-year-old male came in with right lower extremity edema to the found to have pulm embolism bilateral on the CT of the chest. Patient troponins are negative. Patient did undergo echocardiogram to evaluate for intralesional thrombolytic therapy. Patient denies any chest pain patient has increased swelling in the right lower extremity. Patient had a recent lumbar laminectomy. Patient any cough fever chills patient does have leukocytosis. Patient is presently on IV heparin.. REVIEW OF SYSTEMS: CONSTITUTIONAL: No fever, no malaise, no fatigue. HEENT: No recent visual problems or hearing problems. Denied any sore throat. CARDIOVASCULAR: No chest pain, orthopnea, PND, no palpitations, no syncope. PULMONARY: No shortness of breath, no cough, no hemoptysis. GASTROINTESTINAL: No diarrhea, no nausea, no vomiting, no abdominal pain. NEUROLOGICAL: No headaches, no weakness, no numbness. HEMATOLOGICAL: Denies any bleeding or petechiae. GENITOURINARY: Denies any burning micturition, frequency, or urgency. MUSCULOSKELETAL/RHEUMATOLOGICAL: Denies any joint pain, swelling, or any muscle pain. ENDOCRINE: Denies any polyuria or polydipsia. The rest of the 14-point review of systems is negative. PHYSICAL EXAMINATION: GENERAL: The patient is alert and oriented x3, not in any acute distress. Well developed, well nourished. HEENT: Pupils are round and equally reacting to light. EOMI. No scleral icterus. No conjunctival pallor. Normocephalic, atraumatic. No pharyngeal erythema. No thyromegaly. CARDIOVASCULAR: S1 and S2 present. No murmurs, rubs, or gallops. PULMONARY: Chest is clear to auscultation, no wheezing or crackles. ABDOMEN: Soft, nontender, nondistended, normoactive bowel sounds. No palpable organomegaly. MUSCULOSKELETAL: No joint swelling or deformity. EXTREMITIES: No cyanosis, clubbing, or pedal edema. NEUROLOGICAL: Gross neurological examination did not reveal any focal deficits. SKIN: No rashes. Assessment and plan -Acute pulm embolism which is secondary to recent lumbar laminectomy. Will obtain echocardiogram pelvis assess for RV strain and need for intralesional thrombolytic therapy. Vascular surgery was consulted -Chronic back pain with recent laminectomy -Seizure disorder -Hyperlipidemia -Leukocytosis reactive without any evidence of infection clinically DVT prophylaxis: Patient is on IV heparin Past Medical History Past Medical History: Hyperlipidemia, Seizure Disorder History of Any Multi-Drug Resistant Organisms: None Reported Past Surgical History: Adenoidectomy Additional Past Surgical History / Comment(s): Laminectomy (09/08/23) Past Anesthesia/Blood Transfusion Reactions: No Reported Reaction Past Psychological History: No Psychological Hx Reported Smoking Status: Never smoker Past Alcohol Use History: Occasional Past Drug Use History: None Reported - Past Family History Father Additional Family Medical History / Comment(s): "Heart problems" with CABG x4 Mother Additional Family Medical History / Comment(s): "Back issues" Medications and Allergies Home Medications Medication Instructions Recorded Confirmed Type Atorvastatin [Lipitor] 20 mg PO HS 08/01/23 09/09/23 History Divalproex ER [Depakote ER] 500 mg PO HS 08/01/23 09/09/23 History levETIRAcetam [Keppra Xr] 1,000 mg PO HS 08/01/23 09/09/23 History rOPINIRole HCL [Requip] 1 mg PO HS 08/01/23 09/09/23 History Cyclobenzaprine [Flexeril] 10 mg PO BID PRN 09/09/23 09/09/23 History HYDROcodone/APAP 5-325MG [[place] 1 tab PO TID PRN 09/09/23 09/09/23 History 5-325] Ibuprofen [Motrin] 800 mg PO Q8H PRN 09/09/23 09/09/23 History Allergies Allergy/AdvReac Type Severity Reaction Status Date / Time Penicillins Allergy Rash/Hives Verified 09/09/23 15:17 Physical Exam Vitals: Vital Signs Temp Pulse Pulse Resp BP BP Pulse Ox 09/10/23 11:04 97.6 F 90 20 125/82 95 09/10/23 07:50 97.9 F 98 16 128/88 96 09/10/23 05:25 98.4 F 93 18 129/87 99 09/09/23 23:14 18 139/87 99 09/09/23 20:33 95 18 128/89 96 09/09/23 15:12 100 18 139/89 96 Intake and Output 09/09/23 09/10/23 09/10/23 22:59 06:59 14:59 Intake Total 238.131 Balance 238.131 Intake: Intake, IV Titration 238.131 Amount Heparin Sod,Pork in 0.45% 238.131 NaCl 25,000 unit In 0.45 % NaCl 1 250ml.bag @ 18 UNITS/KG/HR 16.329 mls/hr IV .[id number] [facility] Rx#: [id number] Other: Voiding Method Urinal # Voids 1 Weight 90.718 kg Results CBC & Chem 7: 09/09/23 14:16 09/09/23 14:16 Labs: Abnormal Lab Results - Last 24 Hours (Table) 09/09/23 09/09/23 09/09/23 Range/Units 14:16 14:16 21:28 WBC 20.5 H (3.8-10.6) k/uL Neutrophils # 16.2 H (1.3-7.7) k/uL Monocytes # 1.5 H (0-1.0) k/uL APTT 71.4 H (22.0-30.0) sec Glucose 101 H (74-99) mg/dL ALT 54 H (4-49) U/L 09/10/23 Range/Units 08:00 WBC (3.8-10.6) k/uL Neutrophils # (1.3-7.7) k/uL Monocytes # (0-1.0) k/uL APTT 69.0 H (22.0-30.0) sec Glucose (74-99) mg/dL ALT (4-49) U/L Thrombosis Risk Factor Assmnt - Choose All That Apply Any of the Below Risk Factors Present?: Yes Each Factor Represents 1 point: Age 41-60 years, Obesity (BMI >25), Swollen legs (current) Other Risk Factors: Yes Each Risk Factor Represents 3 Points: History of DVT/PE Other congenital or acquired thrombophilia - If yes, enter type in comment: Yes Each Risk Factor Represents 5 Points: Major surgery lasting over 3 hours Thrombosis Risk Factor Assessment Total Risk Factor Score: 11 Thrombosis Risk Factor Assessment Level: High Risk
[2023-09-10] MEDS: FAMOTIDINE 20 MG TAB PO SCH (13:30)
--- NOTE | 2023-09-10 19:49 | P.PN ---
Subjective Progress Note Date: 09/10/23 This is a 43-year-old male patient who was brought into the hospital due to concern of a right lower extremity swelling/DVT. The patient has undergone limited laminectomy on outpatient basis [facility]. Noted preoperatively, the patient was experiencing back pain and he was essentially se dentary and at the same time he was experiencing right lower extremity swelling. He has discussed this on multiple occasions with surgery and his primary care physician and his swelling was attributed to ongoing laminectomy. Ultimately, the patient was brought into the emergency department and the patient underwent a right lower extremity ultrasound that showed a DVT of the right lower extremity and CT angiogram of the chest showed bilateral pulmonary embolism and mild cardiomegaly without any clear evidence of any strain pattern. The patient had filling defects in the right and left main pulmonary arteries with extension into the lower lobes more so on the right compared to the left. Troponins were negative. The patient is free of any chest pain. No respiratory distress. No cough sputum production chest tightness or wheezing. No pleurisy. White cell count is at 20 with a hemoglobin 15.2 and a platelet count of 319. Normal coagulation profile. Normal electrolytes. Normal renal function. No previous history of DVT or pulmonary embolism. No personal or family history of DVT or pulmonary embolism. As such, the patient was started on IV heparin. The patient otherwise has no specific complaints. His surgical wound site over the back area is dry clean and intact. His right lower extremity was getting progressively more swollen and red. He has Doppler of the lower extremity was done on outpatient basis confirming evidence of DVT. On today's evaluation of 09/10/2023, the patient remains clinically and hemodynamically stable and remains on IV heparin. No bleeding complications. No chest pain. No hemoptysis or pleurisy. Echocardiogram is still pending. Tentative preliminary report showing no significant pulmonary hypertension. The patient otherwise is doing well. No specific complaints. Continues to have significant edema right lower extremity related to his right lower extremity DVT. Hemodynamically stable. Objective - Vital Signs Vital signs: Vital Signs Temp 97.9 F 09/10/23 07:50 Pulse 98 09/10/23 07:50 Resp 16 09/10/23 07:50 BP 128/88 09/10/23 07:50 Pulse Ox 96 09/10/23 07:50 FiO2 Intake & Output 09/09/23 09/10/23 09/10/23 18:59 06:59 18:59 Intake Total 238.131 Balance 238.131 Weight 90.718 kg 90.718 kg Intake: Intake, IV Titration 238.131 Amount Heparin Sod,Pork in 0.45% 238.131 NaCl 25,000 unit In 0.45 % NaCl 1 250ml.bag @ 18 UNITS/KG/HR 16.329 mls/hr IV .[id number] [facility] Rx#: [id number] Other: Voiding Method Urinal - Exam General appearance, the patient is calm and comfortable, no acute distress. Currently on room air oxygen. No tachycardia. No hemodynamic instability. Head exam was generally normal. There was no scleral icterus or corneal arcus. Mucous membranes were moist. Neck was supple and without jugular venous distension, thyromegaly, or carotid bruits. Carotids were easily palpable bilaterally. There was no adenopathy. Lungs were clear to auscultation and percussion, and with normal diaphragmatic excursion. No wheezes or rales were noted. Cardiac exam revealed the PMI to be normally situated and sized. The rhythm was regular and no extrasystoles were noted during several minutes of auscultation. The first and second heart sounds were normal and physiologic splitting of the second heart sound was noted. There were no murmurs, rubs, clicks, or gallops. Abdominal exam revealed normal bowel sounds. The abdomen was soft, non-tender, and without masses, organomegaly, or appreciable enlargement of the abdominal aorta. Extremities reveal a swollen right lower extremity. There is also some erythema. Equal and symmetrical pulses bilaterally. Examination of the skin revealed no evidence of significant rashes, suspicious appearing nevi or other concerning lesions. Surgical wound site over the back area is dry clean and intact. Neurologically, the patient is awake and alert and the patient does not have any focal neurological deficit. Cranial nerves are essentially intact. - Labs CBC & Chem 7: 09/09/23 14:16 09/09/23 14:16 Labs: Abnormal Lab Results - Last 24 Hours (Table) 09/09/23 09/09/23 09/09/23 Range/Units 14:16 14:16 21:28 WBC 20.5 H (3.8-10.6) k/uL Neutrophils # 16.2 H (1.3-7.7) k/uL Monocytes # 1.5 H (0-1.0) k/uL APTT 71.4 H (22.0-30.0) sec Glucose 101 H (74-99) mg/dL ALT 54 H (4-49) U/L 09/10/23 Range/Units 08:00 WBC (3.8-10.6) k/uL Neutrophils # (1.3-7.7) k/uL Monocytes # (0-1.0) k/uL APTT 69.0 H (22.0-30.0) sec Glucose (74-99) mg/dL ALT (4-49) U/L Assessment and Plan Plan: Acute pulmonary embolism associated with a right lower extremity DVT. The p atient's pulmonary emboli, bilateral involving the right and left mainstem bronchi extending to the lower lobe segments. Despite this, the patient is hemodynamically stable. No evidence of any RV strain and troponins are negative. No tachycardia. No hypotension. No shortness of breath. No pleu risy or hemoptysis. Right lower extremity DVT that occurred most likely prior to his back surgery. The patient was having swelling and pain in his right lower extremity prior to his back surgery. As such, this is probably an unprovoked event Lumbar spine surgery involving a laminectomy performed on 09/08/2023 Chronic back pain History of seizure disorder Hyperlipidemia Plan Continue IV heparin Obtain echocardiogram to assess RV strain and pulmonary hypertension, awaiting official report Hemodynamically stable on room air oxygen No tachycardia Troponins are negative Keep the patient on IV heparin for another 24 hours and will transition this patient to oral anticoagulation in a.m. Compression stocking to right lower extremity Resume home medications Will continue to follow. Will require anticoagulation close monitoring of his surgical wounds. Not a candidate for intra-arterial thrombolytic therapy or clot extraction thrombectomy at this point in time. Will continue to follow.
[2023-09-10] MEDS: levETIRAcetam 500 MG TAB PO SCH (20:35)
[2023-09-11 06:56] LABS: HCT 46.3 % (39.0-53.0); HGB 15.3 gm/dL (13.0-17.5); MCH 29.9 pg (25.0-35.0); MCV 90.7 fL (80.0-100.0); Mean Platelet Volume 7.2; Platelet Count 342 k/uL (150-450); RBC 5.11 m/uL (4.30-5.90); RDW 12.5 % (11.5-15.5); WBC 18.1 k/uL (3.8-10.6)
[2023-09-11 07:26] LABS: African American GFR (CKD) >90 (>60 ml/min/1.73 sqM); Anion Gap 11 mmol/L; Blood Urea Nitrogen 16 mg/dL (9-20); Calcium 9.5 mg/dL (8.4-10.2); Carbon Dioxide 25 mmol/L (22-30); Chloride 105 mmol/L (98-107); Glucose 95 mg/dL (74-99); Non-African American GFR(CKD) >90 (>60 ml/min/1.73 sqM); Potassium 4.1 mmol/L (3.5-5.1); Sodium 141 mmol/L (137-145)
[2023-09-11 08:29] VITALS: RESP 20
--- NOTE | 2023-09-11 09:06 | P.GSCN ---
History of Present Illness Consult date: 09/11/23 Reason for Consult: Right femoral deep venous thrombosis with associated bilateral nonhemodynamically severe pulmonary emboli. History of present illness: Patient is a 43-year-old male who was recently admitted to the hospital complaining of right lower extremity discomfort and swelling. Patient has a history of experiencing a ruptured disc. Initially this was planned to be treated conservatively however the patient's symptoms escalated and patient was offered surgical intervention. In the few days preceding his surgery which was performed on the of this month patient was complaining of some leg swelling. This was thought to be due to muscle spasm due to the neurologic impingement. The patient underwent his spinal surgery without issue. The following day the patient continued to complain of right lower extremity edema. Venous duplex imaging was performed which demonstrated right femoral venous thrombosis. CT angiogram of the pulmonary arteries demonstrates bilateral pulmonary emboli. The patient was subsequently admitted and placed on IV heparin. During this entire time there is no hemodynamic instability noted. Workup including troponins demonstrated no evidence of right heart strain. There is no personal nor known family history of hypercoagulable syndrome. Past Medical History Past Medical History: Hyperlipidemia, Seizure Disorder History of Any Multi-Drug Resistant Organisms: None Reported Past Surgical History: Adenoidectomy Additional Past Surgical History / Comment(s): Laminectomy (09/08/23) Past Anesthesia/Blood Transfusion Reactions: No Reported Reaction Past Psychological History: No Psychological Hx Reported Smoking Status: Never smoker Past Alcohol Use History: Occasional Past Drug Use History: None Reported - Past Family History Father Additional Family Medical History / Comment(s): "Heart problems" with CABG x4 Mother Additional Family Medical History / Comment(s): "Back issues" Medications and Allergies Home Medications Medication Instructions Recorded Confirmed Type Atorvastatin [Lipitor] 20 mg PO HS 08/01/23 09/09/23 History Divalproex ER [Depakote ER] 500 mg PO HS 08/01/23 09/09/23 History levETIRAcetam [Keppra Xr] 1,000 mg PO HS 08/01/23 09/09/23 History rOPINIRole HCL [Requip] 1 mg PO HS 08/01/23 09/09/23 History Cyclobenzaprine [Flexeril] 10 mg PO BID PRN 09/09/23 09/09/23 History HYDROcodone/APAP 5-325MG [[place] 1 tab PO TID PRN 09/09/23 09/09/23 History 5-325] Ibuprofen [Motrin] 800 mg PO Q8H PRN 09/09/23 09/09/23 History Allergies Allergy/AdvReac Type Severity Reaction Status Date / Time Penicillins Allergy Rash/Hives Verified 09/09/23 15:17 Surgical - Exam Osteopathic Statement: *. No significant issues noted on an osteopathic structural exam other than those noted in the History and Physical/Consult. Vital Signs Temp Pulse Resp BP Pulse Ox 97.9 F 96 16 133/80 97 09/09/23 11:42 09/09/23 11:42 09/09/23 11:42 09/09/23 11:42 09/09/23 11:42 Patient Seen Date: 09/11/23 Patient Seen Time: 08:00 Patient is awake, alert, cooperative and in no apparent distress. Heart: Regular. Lungs: Clear. Abdomen: Soft and benign. Extremities: Femoral, popliteal, DP and PT pulses are intact bilaterally. The right lower extremity is mildly edematous. It is nontender to palpation. Results - Labs 09/11/23 06:33 09/11/23 06:33 Abnormal Lab Results - Last 24 Hours (Table) 09/11/23 09/11/23 Range/Units 06:33 06:33 WBC 18.1 H (3.8-10.6) k/uL APTT 58.2 H (22.0-30.0) sec Diabetes panel 09/11/23 Range/Units 06:33 Sodium 141 (137-145) mmol/L Potassium 4.1 (3.5-5.1) mmol/L Chloride 105 (98-107) mmol/L Carbon Dioxide 25 (22-30) mmol/L BUN 16 (9-20) mg/dL Creatinine 0.74 (0.66-1.25) mg/dL Glucose 95 (74-99) mg/dL Calcium 9.5 (8.4-10.2) mg/dL Calcium panel 09/11/23 Range/Units 06:33 Calcium 9.5 (8.4-10.2) mg/dL Pituitary panel 09/11/23 Range/Units 06:33 Sodium 141 (137-145) mmol/L Potassium 4.1 (3.5-5.1) mmol/L Chloride 105 (98-107) mmol/L Carbon Dioxide 25 (22-30) mmol/L BUN 16 (9-20) mg/dL Creatinine 0.74 (0.66-1.25) mg/dL Glucose 95 (74-99) mg/dL Calcium 9.5 (8.4-10.2) mg/dL Adrenal panel 09/11/23 Range/Units 06:33 Sodium 141 (137-145) mmol/L Potassium 4.1 (3.5-5.1) mmol/L Chloride 105 (98-107) mmol/L Carbon Dioxide 25 (22-30) mmol/L BUN 16 (9-20) mg/dL Creatinine 0.74 (0.66-1.25) mg/dL Glucose 95 (74-99) mg/dL Calcium 9.5 (8.4-10.2) mg/dL - Imaging CT scan - chest: image reviewed Additional studies: Lower extremity venous duplex study images reviewed. Assessment and Plan Assessment: 1: Right femoral deep venous thrombosis (acute) with associated nonhemodynamically severe pulmonary emboli. 2: Status post laminectomy. 3: No personal nor family history of hypercoagulable syndrome or previous thrombotic event. Plan: 1: Agree with the anticoagulation although from a vascular surgical standpoint the patient could be transition to oral anticoagulation assuming no contraindication from a neurosurgical standpoint. 2: Had a long discussion with the patient regarding possible post thrombotic syndrome. Did recommend the patient utilize external compression support hose. 3: Card given to patient and his spouse. Will be happy to see the patient in follow-up as an outpatient. Time with Patient: Greater than 30
[2023-09-11] MEDS: Apixaban Initiation Dose--VTE 5 MG TAB PO SCH (09:49)
--- NOTE | 2023-09-11 12:16 | P.PN ---
Subjective Progress Note Date: 09/11/23 This is a 43-year-old male patient who was brought into the hospital due to concern of a right lower extremity swelling/DVT. The patient has undergone limited laminectomy on outpatient basis by [facility]. Noted preoperatively, the patient was experiencing back pain and he was essentially se dentary and at the same time he was experiencing right lower extremity swelling. He has discussed this on multiple occasions with surgery and his primary care physician and his swelling was attributed to ongoing laminectomy. Ultimately, the patient was brought into the emergency department and the patient underwent a right lower extremity ultrasound that showed a DVT of the right lower extremity and CT angiogram of the chest showed bilateral pulmonary embolism and mild cardiomegaly without any clear evidence of any strain pattern. The patient had filling defects in the right and left main pulmonary arteries with extension into the lower lobes more so on the right compared to the left. Troponins were negative. The patient is free of any chest pain. No respiratory distress. No cough sputum production chest tightness or wheezing. No pleurisy. White cell count is at 20 with a hemoglobin 15.2 and a platelet count of 319. Normal coagulation profile. Normal electrolytes. Normal renal function. No previous history of DVT or pulmonary embolism. No personal or family history of DVT or pulmonary embolism. As such, the patient was started on IV heparin. The patient otherwise has no specific complaints. His surgical wound site over the back area is dry clean and intact. His right lower extremity was getting progressively more swollen and red. He has Doppler of the lower extremity was done on outpatient basis confirming evidence of DVT. On today's evaluation of 09/10/2023, the patient remains clinically and hemodynamically stable and remains on IV heparin. No bleeding complications. No chest pain. No hemoptysis or pleurisy. Echocardiogram is still pending. Tentative preliminary report showing no significant pulmonary hypertension. The patient otherwise is doing well. No specific complaints. Continues to have significant edema right lower extremity related to his right lower extremity DVT. Hemodynamically stable. 09/11/2023, the patient is being seen for a follow-up. The patient has no specific complaints. No respiratory distress. Limited soreness across his left lateral chest area which could be related to his pulm embolism. Remains on IV heparin. He was seen by vascular surgery. He is ambulating with the help of a walker. The white cell count of 18 with a hemoglobin 15.3 and a platelet count of 342. BUN is 60 with a creatinine of 0.7. No other significant events overnight and the patient's condition is stable for now. No hemoptysis. No bleeding Objective - Vital Signs Vital signs: Vital Signs Temp 98.2 F 09/11/23 08:13 Pulse 104 H 09/11/23 11:11 Resp 20 09/11/23 11:11 BP 128/80 09/11/23 11:11 Pulse Ox 97 09/11/23 11:11 FiO2 Intake & Output 09/10/23 09/11/23 09/11/23 18:59 06:59 18:59 Intake Total 254.391 355.043 Balance 254.391 355.043 Weight 90.718 kg Intake: IV 10 .9 10 Intake, IV Titration 244.391 237.043 Amount Heparin Sod,Pork in 0.45% 244.391 237.043 NaCl 25,000 unit In 0.45 % NaCl 1 250ml.bag @ 18 UNITS/KG/HR 16.329 mls/hr IV .[id number] [facility] Rx#: [id number] Oral 118 Other: Voiding Method Urinal Toilet Toilet Urinal Urinal # Voids 1 2 1 - Exam General appearance, the patient is calm and comfortable, no acute distress. Currently on room air oxygen. No tachycardia. No hemodynamic instability. Head exam was generally normal. There was no scleral icterus or corneal arcus. Mucous membranes were moist. Neck was supple and without jugular venous distension, thyromegaly, or carotid bruits. Carotids were easily palpable bilaterally. There was no adenopathy. Lungs were clear to auscultation and percussion, and with normal diaphragmatic excursion. No wheezes or rales were noted. Cardiac exam revealed the PMI to be normally situated and sized. The rhythm was regular and no extrasystoles were noted during several minutes of auscultation. The first and second heart sounds were normal and physiologic splitting of the second heart sound was noted. There were no murmurs, rubs, clicks, or gallops. Abdominal exam revealed normal bowel sounds. The abdomen was soft, non-tender, and without masses, organomegaly, or appreciable enlargement of the abdominal aorta. Extremities reveal a swollen right lower extremity. There is also some erythema. Equal and symmetrical pulses bilaterally. Examination of the skin revealed no evidence of significant rashes, suspicious appearing nevi or other concerning lesions. Surgical wound site over the back area is dry clean and intact. Neurologically, the patient is awake and alert and the patient does not have any focal neurological deficit. Cranial nerves are essentially intact. - Labs CBC & Chem 7: 09/11/23 06:33 09/11/23 06:33 Labs: Abnormal Lab Results - Last 24 Hours (Table) 09/11/23 09/11/23 Range/Units 06:33 06:33 WBC 18.1 H (3.8-10.6) k/uL APTT 58.2 H (22.0-30.0) sec Assessment and Plan Plan: Acute pulmonary embolism associated with a right lower extremity DVT. The pat ient's pulmonary emboli, bilateral involving the right and left mainstem bronchi extending to the lower lobe segments. Despite this, the patient is hemodynamically stable. No evidence of any RV strain and troponins are negative. No tachycardia. No hypotension. No shortness of breath. No pleuri sy or hemoptysis. Right lower extremity DVT that occurred most likely prior to his back surgery. The patient was having swelling and pain in his right lower extremity prior to his back surgery. As such, this is probably an unprovoked event Lumbar spine surgery involving a laminectomy performed on 09/08/2023 Chronic back pain History of seizure disorder Hyperlipidemia Plan Stop the IV heparin and start the patient anticoagulation with Eliquis 10 mg p.o. twice a day Obtain echocardiogram to assess RV strain and pulmonary hypertension, awaiting official report Hemodynamically stable on room air oxygen No tachycardia Troponins are negative Keep the patient on IV heparin for another 24 hours and will transition this patient to oral anticoagulation in a.m. Compression stocking to right lower extremity Resume home medications Will continue to follow. close monitoring of his surgical wounds. Not a candidate for intra-arterial thrombolytic therapy or clot extraction thrombectomy at this point in time. Possible discharge home today to be followed up on outpatient basis. Compression stocking was applied to the right lower extremity.
[2023-09-11 15:51] VITALS: BP 122/85; PULSE 105; TEMP 98
--- NOTE | 2023-09-14 15:30 | P.DS ---
Providers Date of admission: 09/09/23 13:57 Attending physician: Rebekah Thurman Consults: 09/09/23 14:21 Consult Physician Urgent Consulting Provider: Geo Aquino Consult Reason/Comments: DVT right leg Do you want consulting provider notified?: Yes 09/09/23 16:12 Consult Physician Urgent Consulting Provider: Kushal Stephen Consult Reason/Comments: Bilateral PEs Do you want consulting provider notified?: Yes Primary care physician: Felecia Dorsey Hospital Course: Final Diagnosis -Acute pulm embolism which is secondary to recent lumbar laminectomy. -Chronic back pain with recent laminectomy -Seizure disorder -Hyperlipidemia -Leukocytosis reactive without any evidence of infection clinically Discharge Disposition Patient is stable for discharge home. He will discharge on oral anticoagulation and follow closely with pulmonary in the office. Repeat a CBC in 2 to 3 days. Hospital Course This is a 31-year-old male with medical history of recent lumbar laminectomy, seizure disorder, hyperlipidemia. Patient came in with right lower extremity edema to the found to have pulm embolism bilateral on the CT of the chest. Patient troponins are negative. Patient did undergo echocardiogram to evaluate for intralesional thrombolytic therapy. Patient denies any chest pain patient has increased swelling in the right lower extremity. Patient had a recent lumbar laminectomy. Patient any cough fever chills patient does have leukocytosis. Patient is presently on IV heparin.. Was admitted with a pulmonary consultation. Patient had an echocardiogram done which reveals no right heart strain. There has been an issue with this echo crossing over into the patient's medical record and was discussed personally with cardiology who read the echo and states that again there was no right heart strain and normal LV function was noted. Has been monitored overnight and transition to oral Eliquis 10 mg twice a day for the next 6 days and transition to oral Eliquis 5 mg twice a day. Patient will need close follow-up with pulmonary in the medical office. He is not reporting any shortness of breath and he is on room air at 95%. Please see medication reconciliation for a list of current medications. Thank you for allowing us to participate in the care of this patient. The impression and plan of care has been dictated by Jeimy Hopson Nurse Practitioner as directed. Dr. Solo MD I have performed a history and physical examination and medical decision making of this patient, discussed the same with the dictator, and agree with the dictators assessment and plan as written, documented as a scribe. Based on total visit time, I have performed more than 50% of this visit. Patient Condition at Discharge: Fair Plan - Discharge Summary Discharge Rx Participant: Yes New Discharge Prescriptions: New Apixaban [Eliquis] 5 mg PO DIRECTED 30 Days #72 tab Famotidine [Pepcid] 20 mg PO DAILY #30 tablet Continue rOPINIRole HCL [Requip] 1 mg PO HS Divalproex ER [Depakote ER] 500 mg PO HS levETIRAcetam [Keppra Xr] 1,000 mg PO HS Atorvastatin [Lipitor] 20 mg PO HS Cyclobenzaprine [Flexeril] 10 mg PO BID PRN PRN Reason: Muscle Spasm Ibuprofen [Motrin] 800 mg PO Q8H PRN PRN Reason: Pain HYDROcodone/APAP 5-325MG [[place] 5-325] 1 tab PO TID PRN PRN Reason: Pain Discharge Medication List Atorvastatin [Lipitor] 20 mg PO HS 08/01/23 [History] Divalproex ER [Depakote ER] 500 mg PO HS 08/01/23 [History] levETIRAcetam [Keppra Xr] 1,000 mg PO HS 08/01/23 [History] rOPINIRole HCL [Requip] 1 mg PO HS 08/01/23 [History] Cyclobenzaprine [Flexeril] 10 mg PO BID PRN 09/09/23 [History] HYDROcodone/APAP 5-325MG [[place] 5-325] 1 tab PO TID PRN 09/09/23 [History] Ibuprofen [Motrin] 800 mg PO Q8H PRN 09/09/23 [History] Apixaban [Eliquis] 5 mg PO DIRECTED 30 Days #72 tab 09/11/23 [Rx] Famotidine [Pepcid] 20 mg PO DAILY #30 tablet 09/11/23 [Rx] Follow up Appointment(s)/Referral(s): Felecia Dorsey MD [Primary Care Provider] - 1-2 days (Office closed at this time; please call [facility] on Tuesday to schedule follow up appointment.) Kushal Stephen MD [STAFF PHYSICIAN] - 1 Week (Office closed at this time; please call [facility] on Tuesday to schedule follow up appointment.) Ambulatory/Diagnostic Orders: Complete Blood Count w/diff [LAB.AMB] Time Frame: 3 Days, Location: None Selected Patient Instructions/Handouts: Pulmonary Embolism (DC), Deep Vein Thrombosis (DC) Discharge Disposition: HOME SELF-CARE
== END 2023-09-11 16:29 | disposition home or self-care (01) | DRG 299 ==
LOC: EC 11:38 → 1SOBS 13:57 → 3SCARD 17:33
PROVIDERS: ADMIT Internal Medicine; ATTEND Internal Medicine
DX: I82.411 Acute embolism and thrombosis of right femoral vein (principal); I26.99 Other pulmonary embolism without acute cor pulmonale; G40.909 Epilepsy, unspecified, not intractable, without status epilepticus; D72.829 Elevated white blood cell count, unspecified; G89.29 Other chronic pain; M54.9 Dorsalgia, unspecified; Z28.21 Immunization not carried out because of patient refusal; Z79.899 Other long term (current) drug therapy; Z88.0 Allergy status to penicillin; Z72.3 Lack of physical exercise
CPT/HCPCS: 36415; 71275; 80048; 80053; 84484; 85025; 85027; 85610; 85730; 93005; 93306; 96365; 96366; 99285

== ENCOUNTER → 2023-09-09 | Outpatient (CLI) | payer BC ==
--- NOTE | 2023-09-09 11:57 | US ---
EXAMINATION TYPE: US venous doppler duplex LE RT DATE OF EXAM: 09/09/2023 11:27 AM COMPARISON: NONE CLINICAL INDICATION: Male, 43 years old with history of I80.9 PHLEBITIS AND THROMBOPHLEBITIS OF UNSPE CIFIE; right leg redness and swelling. Back surgery yesterday. No hx of DVT. Not on blood thinners SIDE PERFORMED: Right TECHNIQUE: The lower extremity deep venous system is examined utilizing real time linear array sonog audrey with graded compression, doppler sonography and color-flow sonography. VESSELS IMAGED: Common Femoral Vein Deep Femoral Vein Greater Saphenous Vein * Femoral Vein Popliteal Vein Small Saphenous Vein * Proximal Calf Veins (* superficial vessels) Right Leg: There are echoes seen from the proximal fem vein all the way down to the calf. There is n o compression and limited blood flow IMPRESSION: Findings suggest acute DVT.
== END | disposition home or self-care (01) ==
LOC: RADUSWWP 11:07
PROVIDERS: ATTEND Orthopaedic Surgery Orthopaedic Surgery of the Spine
DX: I80.9 Phlebitis and thrombophlebitis of unspecified site (principal); M79.89 Other specified soft tissue disorders

== ENCOUNTER → 2023-09-14 | Outpatient (CLI) | payer BC ==
[2023-09-14 14:48] LABS: Basophils # (A) 0.14 X 10*3/uL (0.00-0.10); Basophils % (A) 1.1 %; Eosinophils % (A) 1.5 %; HGB 14.7 g/dL (13.0-17.0); Lymphocytes # (A) 3.12 X 10*3/uL (0.90-5.00); Lymphocytes % (A) 23.7 %; MCH 30.4 pg (27.0-32.0); MCHC 33.4 g/dL (32.0-37.0); MCV 90.9 FL (80.0-97.0); Monocytes # (A) 1.34 X 10*3/uL (0.20-1.00); Monocytes % (A) 10.2 %; NRBC Per 100 WBC 0 X 10*3/uL (0.00-0.01); Neutrophils # (A) 8.09 X 10*3/uL (1.80-7.70); Neutrophils % (A) 61.4 %; Platelet Count 390 X 10*3/uL (140-440); RBC 4.84 X 10*6/uL (4.40-5.60); WBC 13.16 X 10*3/uL (4.50-10.00)
== END | disposition home or self-care (01) ==
LOC: LABWHC1 10:51
PROVIDERS: ATTEND Nurse Practitioner Family
DX: D72.829 Elevated white blood cell count, unspecified (principal)
CPT/HCPCS: 36415; 85025

== ENCOUNTER → 2024-04-06 | Outpatient (CLI) | payer BC ==
--- NOTE | 2024-04-06 10:52 | US ---
EXAMINATION TYPE: US venous doppler duplex LE DATE OF EXAM: 04/06/2024 10:43 AM COMPARISON: NONE CLINICAL INDICATION: Male, 43 years old with history of I26.99 OTHER PULMONARY EMBOLISM WITHOUT ACUTE COR; Hx DVT and PE x 7 months ago. No symptoms. On blood thinners, Pain TECHNIQUE: The lower extremity deep venous system is examined utilizing real time linear array sonog audrey with graded compression, color doppler sonography, and spectral doppler. SIDE PERFORMED: Bilateral FINDINGS: VESSELS IMAGED: Common Femoral Vein Deep Femoral Vein Greater Saphenous Vein * Femoral Vein Popliteal Vein Small Saphenous Vein * Proximal Calf Veins (* superficial vessels) Right Leg: Negative for DVT, Color Doppler imaging shows patency of the vessels. Spectral waveforms are within normal limits. Left Leg: Negative for DVT, Color Doppler imaging shows patency of the vessels. Spectral waveforms a re within normal limits. IMPRESSION: No ultrasound evidence for deep venous thrombosis. [facility], Workstation: [place], 04/06/2024 10:50 AM
--- NOTE | 2024-04-06 15:39 | CT ---
EXAMINATION TYPE: CT angio chest DATE OF EXAM: 04/06/2024 COMPARISON: Prior CTA chest September 09, 2023 HISTORY: PE CT DLP: 390.7 mGycm. Automated Exposure Control for Dose Reduction was Utilized. CONTRAST: CTA scan of the thorax is performed with IV Contrast, patient injected with 80 mL of Isovue 370, pulm onary embolism protocol. MIP Images are created on CT scanner and reviewed. FINDINGS: LUNGS: The lungs are grossly clear, there is no concerning parenchymal mass or focal consolidation id entified. There is no pleural effusion or pneumothorax seen. The tracheobronchial tree is patent. MEDIASTINUM: Suboptimal study with most dense contrast in the SVC but no convincing CT evidence for a cute pulmonary embolus, currently. Satisfactory enhancement of the thoracic aorta without aneurysm or dissection. There are no greater than 1 cm hilar or mediastinal lymph nodes. No cardiomegaly or pe ricardial effusion is seen. OTHER: Some scoliotic curvature in upper thoracic spine is redemonstrated. IMPRESSION: No CT evidence for acute pulmonary embolism currently. No suspicious acute pulmonary proc ess. [facility], , 04/06/2024 3:36 PM
== END | disposition home or self-care (01) ==
LOC: RADUSWWP 10:08
PROVIDERS: ATTEND Internal Medicine Critical Care Medicine
DX: I26.99 Other pulmonary embolism without acute cor pulmonale (principal)
CPT/HCPCS: 93970; 71275; Q9967

== ENCOUNTER → 2024-04-26 | Outpatient (CLI) | payer BC ==
[2024-04-26 15:17] LABS: Partial Thromboplastin Time 24.9 sec (22.0-30.0); Prothrombin Time 11.2 sec (10.0-12.5)
[2024-04-26 21:43] LABS: Cardiolipin Ab IgG Interp Negative (Negative); Cardiolipin Ab IgM Interp Negative (Negative); Cardiolipin IgA Antibody 9.1 U/mL; Cardiolipin IgM Antibody 3.5 U/mL
[2024-04-27 10:16] LABS: Prothrombin 20210A Mutation Heterozygous
[2024-04-27 11:44] LABS: APTT 41 Sec(s) (<43); Dilute Russell Viper Venom 36 Sec(s) (<44)
[2024-04-27 12:01] LABS: Anti-Thrombin III Antigen 99 % (80 - 120)
== END | disposition home or self-care (01) ==
LOC: LABWHC1 14:20
PROVIDERS: ATTEND Internal Medicine Critical Care Medicine
DX: D68.69 Other thrombophilia (principal)
CPT/HCPCS: 36415; 81240; 81241; 85301; 85303; 85306; 85610; 85613; 85730; 86147

== ENCOUNTER → 2024-05-01 | Outpatient (CLI) | payer BC | END | disposition home or self-care (01) | LOC: LABWHC1 15:57 | PROVIDERS: ATTEND Internal Medicine Critical Care Medicine | DX: D68.69 Other thrombophilia (principal) | CPT/HCPCS: 36415; 85303; 85306 ==